=== PATIENT | female | born 1940 | race Caucasian/White ===

== ENCOUNTER 2017-10-09 07:15 | Day surgery (SDC) | payer MEDICARE, BC ==
--- NOTE | ~2017-10-09 | OP ---
PATIENT NAME: JITENDRA BELLA MEDICAL RECORD: [id number] :44 LOCATION:D.OPS ADMISSION DATE: SURGEON: VIRY LUNA MD DATE OF OPERATION: 10/09/2017 PREOPERATIVE DIAGNOSES: 1. Right distal radius fracture. 2. Carpal tunnel syndrome. POSTOPERATIVE DIAGNOSES: 1. Right distal radius fracture. 2. Carpal tunnel syndrome. PROCEDURES: 1. Open reduction and internal fixation of right distal radius fracture. 2. Carpal tunnel release. SURGEON: Viry Luna MD INTRAOPERATIVE COMPLICATIONS: None. SUMMARY OF PATHOLOGIC FINDINGS: As noted in the preoperative setting, the patient had a displaced distal radius fracture, nearly 100% was not amenable to closed reduction. Preoperative images showed that it was completely knocked off and she had impending and rapidly progressing carpal tunnel syndrome. OPERATIVE SUMMARY IN DETAIL: After obtaining the appropriate preoperative orthopedic surgery consent as well as anesthetic consultation, evaluation, and clearance, the patient was brought to the operating room and placed on the operating table in the supine position. After adequate general laryngeal mask airway was administered, tourniquet was placed about the proximal aspect of the right upper extremity. Right upper extremity was then prepped and draped in a routine sterile fashion. Traction and countertraction maneuvers were performed to reduce the wrist. It was held in this reduction. At this point, volar approach of Vinay into the carpal canal and out down the forearm was utilized to do a complete carpal tunnel release under direct visualization the median nerve while gently rinsing away blood and hematoma that was in the transverse carpal canal. FCR was then utilized as landmark and the median nerve was retracted and the fracture was identified. Having completed this, plate was then placed in the appropriate position on fluoroscopy, it was provisionally pinned and then serial and sequential drill and fill technique using combination of both compression and locking screws were utilized to result in an anatomic quaker of the distal radius in both radial angle of inclination and radial height. Having completed this, wound was copiously irrigated and closed with 2-0 Vicryl followed by 4-0 Prolene in a running fashion. Sterile dressings were applied. Tourniquet was deflated. The patient was awakened and taken to the recovery room in stable condition. All final needle and sponge counts were correct. TRANSINT:[id number] Voice Confirmation ID: [id number] DOCUMENT ID: [id number] OPERATIVE REPORT [id number] JITENDRA BELLA MD, VIRY HENDRICKS at 1808 CC: [id number] DICTATION DATE: 10/27/17 1537 MACHINE OPERATOR HAY STACKER: 10/27/17 1630 [facility] 10/09/17 [place] [id number] [place] [id number]
[~2017-10-09 07:15] MED LIST: COZAAR100 MG PO; PROTONIX40 MG PO
[2017-10-09 08:12] LABS: BASOPHILS 0.2 % (0-2); EOSINOPHILS 0.9 % (0-7); HEMATOCRIT 34.4 % (36.0-48.0); HEMOGLOBIN 11.1 g/dL (12-16); IMMATURE GRANULOCYTES 0.3 % (0-5); LYMPHOCYTES 18.3 % (15-50); MCH 38.4 pg (26.0-34.0); MCHC 32.3 g/dL (31.0-37.0); MEAN PLATELET VOLUME 10.6 fL (7.4-10.4); MONOCYTES 6.6 % (2-11); NEUTROPHILS 73.7 % (40-80); PLATELET COUNT 199 10x3/uL (130-400); RBC 2.89 10x6/uL (4.00-5.40); RDW 13.5 % (11.5-14.5); WBC 5.7 10x3/uL (4.8-10.8)
[2017-10-09 08:28] LABS: APTT 27.6 SECONDS (22.8-39.4); INR 0.99 (0.85-1.17); PROTIME 12.7 SECONDS (11.6-15.0)
[2017-10-09 08:31] LABS: ALBUMIN 3.7 g/dL (3.4-5.0); ANION GAP 14.9 mmol/L (8-16); BILIRUBIN - TOTAL 0.27 mg/dL (0.2-1.3); CALCIUM 8.4 mg/dL (8.5-10.1); CARBON DIOXIDE 23.2 mmol/L (21.0-32.0); CREATININE - SERUM 1.2 mg/dL (0.6-1.3); POTASSIUM - SERUM 4.1 mmol/L (3.5-5.1); PROTEIN - SERUM 6.6 g/dL (6.4-8.2)
[2017-10-09 11:34] VITALS: BMI 24.6
[2017-10-09] MEDS ORDERED: HYDROCODONE-APA1 TAB PO (13:16)
== END 2017-10-09 15:35 | disposition home or self-care (01) ==
LOC: D.ER 07:15 → D.OPS 07:15 → EDSTATUS 12:15 → D.OPS 15:35
PROVIDERS: Emergency Medicine
DX: S52.501A Unspecified fracture of the lower end of right radius, initial encounter for closed fracture (principal); G56.01 Carpal tunnel syndrome, right upper limb; Z01.812 Encounter for preprocedural laboratory examination

== ENCOUNTER 2018-02-27 08:23 | Inpatient (IN) | payer MEDICARE, BC ==
[~2018-02-27] VITALS: Ht 160 cm; Wt 63.5 kg
--- NOTE | ~2018-02-27 | OP ---
PATIENT NAME: JITENDRA HARVEY MEDICAL RECORD: [id number] :44 LOCATION:D.MS Lauren9 ADMISSION DATE:02/27/18 SURGEON: ALISON STAUFFER DO DATE OF OPERATION: 02/28/2018 PROCEDURE PERFORMED: Right total hip arthroplasty. PREOPERATIVE DIAGNOSIS: Displaced right femoral neck fracture. POSTOPERATIVE DIAGNOSIS: Displaced right femoral neck fracture. INDICATIONS: Ms. Harvey is a 78-year-old female who was pulled over by her dog and landed onto her right hip yesterday. She sustained a right femoral neck fracture, was taken to the ER. It was displaced. I informed her we could do nothing; do a total hip, do a josemanuel hip, but due to the fact she is active, we came to the agreeance that a total hip would be the best option for her. She is aware of the risks and benefits of the procedure including infection, bleeding, leg length discrepancy, need for further surgery. She was aware of this including damage to the lateral femoral cutaneous nerve and possible need for transfusion. She consented to the procedure. DESCRIPTION OF PROCEDURE: The patient was taken to the operative suite, laid in supine position, given general anesthetic. Right lower extremity was prepped and draped in sterile fashion. Timeout was performed. Everyone was in agreeance with the correct side, site and patient and procedure. Incision began over the tensor fascia jenn. Careful dissection was made down coagulating bleeders with the plasma knife as it went. The fascia of the tensor fascia jenn was then incised. The fascia was taken superiorly, the muscle belly inferiorly and the interval then opened for the rectus femoris was then opened. The vessels of the ascending branch of the lateral femoral circumflex artery were encountered, tied off and then coagulated also with the Aquamantys. I then encountered the hip capsule. Hohmanns were placed on either side of the femoral neck. Capsulotomy was then performed. This capsule was tagged and then the Hohmanns were put on the inside of the capsule. A neck cut was then done. Due to the fact that this was a subcapital femoral neck fracture, I had to recut the neck. This was removed and the head was removed. The acetabulum was exposed. A trial was put into place and the labrum was removed as well as the pulvinar in the acetabulum. We then reamed up to 50, had good anteversion and good angle of the cup, and was put into place. Then, the femur was exposed, broached up to a 14. This was reduced and seemed to be a little too long. This was removed and then a neck cut was done until we cut the neck and then broached back up to 14. The [address] and sized and trialed with a -6 neck with a high offset stem. This was deemed to be adequate length, almost matching the other side. This was all done under fluoroscopy. Once this was done, the wound was thoroughly irrigated. The capsule was closed with #2 Ethibond and then the tensor fascia jenn fascia was closed with 0 Vicryl, first in a [id number] and then oversewn locking running stitch. The skin was then closed with 2-0 Vicryl in an inverted interrupted pattern and 4-0 Monocryl and the skin with Prineo blue on the skin. Telfa and Tegaderm were then placed on the wound. The patient was awakened and taken to recovery. Blood loss was approximately 100 mL. COMPLICATIONS: None. TRANSINT:[id number] Voice Confirmation ID: [id number] DOCUMENT ID: [id number] OPERATIVE REPORT [id number] JITENDRA HARVEY MICHAEL D, DO at 1137 CC: [id number] DICTATION DATE: 02/28/18 1106 FLOOR SCRAPER: 02/28/18 1129 ADM IN [facility] [address] [place] [address]
--- NOTE | ~2018-02-27 | MORECARE ---
CASE MANAGEMENT DISCHARGE SUMMARY PATIENT: JITENDRA BELLA UNIT: [id number] ADM DATE: 02/27/18 AGE: 78 : 42 SEX: F ROOM/BED: D.2203 AUTHOR: JACKLYN, FARM EQUIPMENT SERVICE TECHNICIAN PHYSICIAN: REFERRING PHYSICIAN: MARY GRACE EASLEY DO DATE OF SERVICE: 02/27/18 Discharge Plan Patient Name: JITENDRA BELLA Facility: [facility]:[place] : 1940 Planned Disposition: Anticipated Discharge Date: 03/03/18 Discharge Date: Expected LOS: 4 Initial Reviewer: [email or web address] Initial Review Date: 03/02/2018 Generated: 03/05/18 4:51 pm Comments DCP- Discharge Planning Updated by [id number]: Lissa Ortiz on 03/05/18 2:[address] Patient Name: JITENDRA BELLA Encounter No: [id number] : 1940 Primary Insurance: MEDICARE A & B Anticipated DC Date: 03-03-2018 Planned Disposition: External Planned Provider: : DCP follow-up note: Patient to go to in patient rehab today. IMM served. Case management will follow and assist as needed. Lissa Ortiz DCP- Discharge Planning Updated by [email or web address]: Alexandra Hernandez on 03/02/18 2:[address] Patient Name: JITENDRA BELLA Admission Status: ER Accout number: [id number] Admission Date: 02-27-2018 : 1940 Admission Diagnosis: Attending: MARY GRACE EASLEY Current LOS: 3 Anticipated DC Date: 03-03-2018 Planned Disposition: Primary Insurance: MEDICARE A & B Discharge Planning Comments: CM met with patient about dc planning. Plans to dc to inpatient rehab then to home. States home environment is safe. Lives at home with and daughter (Theresa), is here to help. IMM served. CM will continue to follow and assist as needed with dc planning/needs. Flooring Sales Manager: Alexandra Hernandez DCPIA - Discharge Planning Initial Assessment Updated by [email or web address]: Alexandra Hernandez on 03/02/18 3:20 pm * Is the patient Alert and Oriented? Yes * How many steps to enterexit or inside your home? * PCP Tj * [facility] [address] * Preadmission Environment Home with Family * ADLs Independent * Equipment None * List name and contact numbers for known caregivers / representatives who currently or will assist patient after discharge: Theresa Spicer, daughter, * Verbal permission to speak to the caregivers and representatives has been obtained from the patient. Yes * Community resources currently utilized None * Additional services required to return to the preadmission environment? No * Can the patient safely return to the preadmission environment? Yes * Has this patient been hospitalized within the prior 30 days at any hospital? No Coverage Notice Reviewer: [email or web address] Steven Hernandez Notice Issued Date-Time: 03/02/2018 15:16 Notice Type: IM Discharge Notice Notice Delivered To: Patient Relationship to Patient: Self Recording Studio Intern Name: Delivery Method: HAND - Hand Delivered Esther Days: Prior Verbal Notification: Recipient Understood Notice: Yes Recipient Signature: Yes Med Rec Note Co-signed by Attending: Coverage Notice Comment: Reviewer: [email or web address] Steven Ortiz Notice Issued Date-Time: 03/05/2018 15:45 Notice Type: IM Discharge Notice Notice Delivered To: Patient Relationship to Patient: Recording Studio Intern Name: Delivery Method: HAND - Hand Delivered Esther Days: Prior Verbal Notification: Recipient Understood Notice: Yes Recipient Signature: Yes Med Rec Note Co-signed by Attending: Coverage Notice Comment: Patient Name: JITENDRA BELLA Page [phone] All edits/amendments must be made on the electronic document DICTATION DATE: 03/05/181550 CLIENT INTEGRATION MANAGER: 03/05/18 155 RPT#: [id number] PA DATE: STATUS: ADM IN [facility] [address] [place] [address] END OF REPORT
[~2018-02-27 08:23] MED LIST changes: +HYDROCODONE-APA1 TAB PO
[2018-02-27] MEDS ORDERED: NORVASC2.5 MG PO (08:27)
[2018-02-27] MEDS ORDERED: ZIAC 2.5/6.25 M1 TAB PO (08:27)
[2018-02-27 08:52] LABS: BASOPHILS 0.4 % (0-2); HEMATOCRIT 33.1 % (36.0-48.0); HEMOGLOBIN 10.8 g/dL (12-16); IMMATURE GRANULOCYTES 0.4 % (0-5); LYMPHOCYTES 19.9 % (15-50); MCHC 32.6 g/dL (31.0-37.0); MCV 113.4 fL (80.0-100.0); MEAN PLATELET VOLUME 10.6 fL (7.4-10.4); NEUTROPHILS 72.3 % (40-80); PLATELET COUNT 181 10x3/uL (130-400); RBC 2.92 10x6/uL (4.00-5.40)
[2018-02-27 09:00] LABS: INR 1.07 (0.85-1.17); PROTIME 13.5 SECONDS (11.6-15.0)
[2018-02-27 09:13] LABS: ALBUMIN 3.4 g/dL (3.4-5.0); ANION GAP 11.9 mmol/L (8-16); BILIRUBIN - TOTAL 0.36 mg/dL (0.2-1.3); CARBON DIOXIDE 25.6 mmol/L (21.0-32.0); POTASSIUM - SERUM 3.5 mmol/L (3.5-5.1); PROTEIN - SERUM 6.4 g/dL (6.4-8.2)
[2018-02-27] MEDS ORDERED: TYLENOL W/CODEI1 TAB PO (11:43)
[2018-02-27] MEDS ORDERED: ZEBETA5 MG (11:45)
[2018-02-27] MEDS ORDERED: VITAMIN D250000 UNIT PO (11:46)
[2018-02-27] MEDS ORDERED: VITAMIN B-1000 MCG/M IM (11:47)
[2018-02-27 19:41] VITALS: BMI 24.8
[2018-02-27 20:37] VITALS: BP 127/61
[2018-02-27 23:43] VITALS: BP 141/68
[2018-02-28] VITALS (15 sets, daily range): BP systolic 118–135; BP diastolic 48–72; Ht 160 cm; Wt 63.5 kg
[2018-02-28 05:21] LABS: BASOPHILS 0.3 % (0-2); EOSINOPHILS 3.1 % (0-7); HEMATOCRIT 31.6 % (36.0-48.0); HEMOGLOBIN 10.3 g/dL (12-16); IMMATURE GRANULOCYTES 0.2 % (0-5); LYMPHOCYTES 17.8 % (15-50); MCH 36.9 pg (26.0-34.0); MCHC 32.6 g/dL (31.0-37.0); MCV 113.3 fL (80.0-100.0); MEAN PLATELET VOLUME 11.2 fL (7.4-10.4); MONOCYTES 8.5 % (2-11); NEUTROPHILS 70.1 % (40-80); PLATELET COUNT 165 10x3/uL (130-400); RBC 2.79 10x6/uL (4.00-5.40); WBC 6.1 10x3/uL (4.8-10.8)
[2018-02-28 05:52] LABS: ANION GAP 8.8 mmol/L (8-16); BILIRUBIN - TOTAL 0.62 mg/dL (0.2-1.3); CALCIUM 7.5 mg/dL (8.5-10.1); CARBON DIOXIDE 25.6 mmol/L (21.0-32.0); CREATININE - SERUM 0.8 mg/dL (0.6-1.3); POTASSIUM - SERUM 3.4 mmol/L (3.5-5.1); PROTEIN - SERUM 5.7 g/dL (6.4-8.2)
[2018-03-01 04:30] VITALS: BP 130/70
[2018-03-01 05:33] LABS: BASOPHILS 0.1 % (0-2); EOSINOPHILS 0.3 % (0-7); IMMATURE GRANULOCYTES 0.3 % (0-5); LYMPHOCYTES 9.1 % (15-50); MCH 36.3 pg (26.0-34.0); MCHC 32.9 g/dL (31.0-37.0); MEAN PLATELET VOLUME 11.3 fL (7.4-10.4); MONOCYTES 7.7 % (2-11); NEUTROPHILS 82.5 % (40-80); PLATELET COUNT 132 10x3/uL (130-400); RDW 11.5 % (11.5-14.5); WBC 7.3 10x3/uL (4.8-10.8)
[2018-03-01 05:34] LABS: HEMATOCRIT 24.6 % (36.0-48.0); HEMOGLOBIN 8.1 g/dL (12-16); MCV 110.3 fL (80.0-100.0); RBC 2.23 10x6/uL (4.00-5.40)
[2018-03-01 06:04] LABS: CALC OSMOLALITY 277 mosm/kg (275-300); CALCIUM 7.4 mg/dL (8.5-10.1); CARBON DIOXIDE 25.9 mmol/L (21.0-32.0); CHLORIDE - SERUM 104 mmol/L (98-107); CREATININE - SERUM 0.7 mg/dL (0.6-1.3); GLUCOSE 148 mg/dL (74-106); POTASSIUM - SERUM 3.4 mmol/L (3.5-5.1); SODIUM 138 mmol/L (136-145); UREA NITROGEN 9 mg/dL (7-18); eGFR NON AFRICAN AMERICAN 86 mL/min (90-120)
[2018-03-01 09:10] VITALS: BP 138/73
[2018-03-01 14:32] VITALS: BP 141/68
[2018-03-01 17:00] VITALS: BP 124/76
[2018-03-01 20:54] VITALS: BP 141/73
[2018-03-01 23:45] VITALS: BP 117/61
[2018-03-02] VITALS: BP 133/68
[2018-03-02 05:05] LABS: BASOPHILS 0.1 % (0-2); EOSINOPHILS 2.3 % (0-7); HEMATOCRIT 26.7 % (36.0-48.0); HEMOGLOBIN 8.9 g/dL (12-16); IMMATURE GRANULOCYTES 0.2 % (0-5); LYMPHOCYTES 12.7 % (15-50); MCH 34.8 pg (26.0-34.0); MCHC 33.3 g/dL (31.0-37.0); MEAN PLATELET VOLUME 11.4 fL (7.4-10.4); MONOCYTES 8.1 % (2-11); NEUTROPHILS 76.6 % (40-80); PLATELET COUNT 124 10x3/uL (130-400); RBC 2.56 10x6/uL (4.00-5.40); RDW 18.2 % (11.5-14.5)
[2018-03-02 05:13] LABS: MCV 104.3 fL (80.0-100.0); WBC 9.2 10x3/uL (4.8-10.8)
[2018-03-02 05:35] LABS: ANION GAP 8.8 mmol/L (8-16); CALCIUM 7.9 mg/dL (8.5-10.1); CARBON DIOXIDE 28.4 mmol/L (21.0-32.0); POTASSIUM - SERUM 3.2 mmol/L (3.5-5.1)
[2018-03-02 06:35] VITALS: BP 131/70
[2018-03-02 09:12] VITALS: BP 132/66
[2018-03-02 12:52] VITALS: BP 135/72
[2018-03-02 22:42] VITALS: BP 123/71
[2018-03-03 03:06] VITALS: BP 134/66
[2018-03-03 05:08] LABS: BASOPHILS 0.1 % (0-2); HEMATOCRIT 23.9 % (36.0-48.0); HEMOGLOBIN 8.1 g/dL (12-16); IMMATURE GRANULOCYTES 0.4 % (0-5); LYMPHOCYTES 10.1 % (15-50); MCH 35.1 pg (26.0-34.0); MCHC 33.9 g/dL (31.0-37.0); MCV 103.5 fL (80.0-100.0); MEAN PLATELET VOLUME 11.5 fL (7.4-10.4); MONOCYTES 9.5 % (2-11); NEUTROPHILS 76.9 % (40-80); PLATELET COUNT 141 10x3/uL (130-400); RBC 2.31 10x6/uL (4.00-5.40); RDW 17.9 % (11.5-14.5); WBC 7.7 10x3/uL (4.8-10.8)
[2018-03-03 06:02] LABS: ALBUMIN 2.2 g/dL (3.4-5.0); ANION GAP 8.9 mmol/L (8-16); BILIRUBIN - TOTAL 0.46 mg/dL (0.2-1.3); CALCIUM 7.9 mg/dL (8.5-10.1); CARBON DIOXIDE 27.3 mmol/L (21.0-32.0); CREATININE - SERUM 0.8 mg/dL (0.6-1.3); POTASSIUM - SERUM 3.2 mmol/L (3.5-5.1); PROTEIN - SERUM 5.5 g/dL (6.4-8.2)
[2018-03-03 08:37] VITALS: BP 140/71
[2018-03-03] MEDS ORDERED: ULTRAM50 MG PO (10:26)
[2018-03-03] MEDS ORDERED: ELIQUIS2.5 MG PO (10:26)
[2018-03-03] MEDS ORDERED: KEFLEX500 MG PO (10:27)
[2018-03-03 12:29] VITALS: BP 139/70
[2018-03-03 16:35] VITALS: BP 135/68
[2018-03-03 20:00] VITALS: BP 145/80
[2018-03-04 00:53] VITALS: BP 143/68
[2018-03-04 05:04] VITALS: BP 136/73
[2018-03-04 08:48] VITALS: BP 135/71
[2018-03-04 09:00] LABS: BASOPHILS 0.3 % (0-2); EOSINOPHILS 1.8 % (0-7); HEMATOCRIT 23.4 % (36.0-48.0); IMMATURE GRANULOCYTES 0.5 % (0-5); MCH 35.1 pg (26.0-34.0); MCHC 34.2 g/dL (31.0-37.0); MCV 102.6 fL (80.0-100.0); MEAN PLATELET VOLUME 11.3 fL (7.4-10.4); MONOCYTES 10.1 % (2-11); NEUTROPHILS 75.3 % (40-80); RBC 2.28 10x6/uL (4.00-5.40); RDW 16.5 % (11.5-14.5); WBC 6.1 10x3/uL (4.8-10.8)
[2018-03-04 09:03] LABS: PLATELET COUNT 185 10x3/uL (130-400)
[2018-03-04 15:25] LABS: HEMATOCRIT 26.1 % (36.0-48.0); HEMOGLOBIN 8.7 g/dL (12-16)
[2018-03-04 16:20] VITALS: BP 122/55
[2018-03-04 19:57] VITALS: BP 137/74
[2018-03-04 23:39] VITALS: BP 137/69
[2018-03-05 04:33] LABS: BASOPHILS 0.4 % (0-2); EOSINOPHILS 3.7 % (0-7); HEMATOCRIT 27.9 % (36.0-48.0); HEMOGLOBIN 9.2 g/dL (12-16); IMMATURE GRANULOCYTES 0.7 % (0-5); LYMPHOCYTES 20.1 % (15-50); MONOCYTES 13.4 % (2-11); NEUTROPHILS 61.7 % (40-80); PLATELET COUNT 199 10x3/uL (130-400); WBC 5.4 10x3/uL (4.8-10.8)
[2018-03-05 04:34] LABS: RBC 2.79 10x6/uL (4.00-5.40)
[2018-03-05 04:55] LABS: ALBUMIN 2.2 g/dL (3.4-5.0); ANION GAP 7.8 mmol/L (8-16); BILIRUBIN - TOTAL 0.67 mg/dL (0.2-1.3); CALCIUM 7.9 mg/dL (8.5-10.1); CARBON DIOXIDE 30.3 mmol/L (21.0-32.0); CREATININE - SERUM 0.9 mg/dL (0.6-1.3); POTASSIUM - SERUM 3.1 mmol/L (3.5-5.1); PROTEIN - SERUM 5.7 g/dL (6.4-8.2)
[2018-03-05 06:13] VITALS: BP 146/76
[2018-03-05 12:40] VITALS: BP 136/77
[2018-03-05 16:51] VITALS: BP 137/75
== END 2018-03-05 22:07 | DRG 470 ==
LOC: D.ER 08:23 → D.MS 10:45 → D.EDHOLD 10:45 → D.MS 11:07
PROVIDERS: Family Medicine; Orthopaedic Surgery
PROC: 0SR90JZ Replacement of Right Hip Joint with Synthetic Substitute, Open Approach (ICD-10-PCS; principal; 2018-02-28 08:00)
DX: S72.001A Fracture of unspecified part of neck of right femur, initial encounter for closed fracture (principal); D62 Acute posthemorrhagic anemia; W18.39XA Other fall on same level, initial encounter; Y93.K1 Activity, walking an animal; I10 Essential (primary) hypertension; K21.9 Gastro-esophageal reflux disease without esophagitis; F32.9 Major depressive disorder, single episode, unspecified; S93.401A Sprain of unspecified ligament of right ankle, initial encounter; R42 Dizziness and giddiness; D64.9 Anemia, unspecified; R00.0 Tachycardia, unspecified

== ENCOUNTER 2018-03-05 17:17 | Inpatient (IN) | payer MEDICARE, BC ==
[~2018-03-05] VITALS: Ht 160 cm; Wt 61.7 kg
--- NOTE | ~2018-03-05 | RHP ---
PATIENT: JITENDRA BELLA MEDICAL RECORD: [id number] ACCOUNT: [id number] LOCATION:[facility]1110 : 44 ADMISSION DATE: 03/05/18 REHABILITATION HISTORY AND PHYSICAL EXAMINATION POST ADMISSION PHYSICIAN EXAMINATION DATE OF ADMISSION: 03/05/2018 ADMITTING DIAGNOSIS: Essential hypertension. HISTORY OF PRESENT ILLNESS: The patient is a 78-year-old female patient admitted to inpatient rehab with a right femoral neck fracture after a fall. The patient presented to the ER on 02/27/2018 per EMS after falling while walking her dog. She had immediate pain in her right hip, was unable to straighten her leg. X-ray of her right femur showed the bones are osteopenic. There was a displaced fracture of the right femoral neck and lateral displacement and proximal migration of the distal fracture. 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 She is currently postop day #5 status post right total hip arthroplasty. She did run temperature postop and had anemia requiring transfusion on 03/04/2018. She will require medical management for anemia, pain control, DVT prophylaxis, respiratory status monitoring. She is new-onset on needing O2 and hypertension. Prior to this fall she was completely independent. Currently mod to max assist with rolling walker and ambulating 35 feet with mod assist with ADL. She required intensive therapies in order to return as close to her prior level of function as possible and get home with her . COMORBIDITIES: In this patient include blood loss anemia, right ankle sprain, musculoskeletal pain, fall, nausea, acid reflux, and depression. PAST MEDICAL HISTORY: Significant for acid reflux, depression. PAST SURGICAL HISTORY: Includes gallbladder surgery, hernia surgery and hysterectomy. ALLERGIES: SULFA AND SKELAXIN. CURRENT MEDICATIONS: Include tramadol 50 mg every 4 hours p.r.n., Protonix 40 mg daily, amlodipine 2.5 mg daily, Keflex 500 mg b.i.d. She is on Eliquis 2.5 mg b.i.d. and polyethylene glycol 17 grams in 8 ounces of water daily. HABITS: No current alcohol or tobacco use. FAMILY HISTORY: Noncontributory. SOCIAL HISTORY: The patient hopes to return back home and get back to her prior level of functioning. REVIEW OF SYSTEMS: GENERAL: Does complain of weakness and fatigue. HEENT: Denies cold, cough, or congestion. CARDIOVASCULAR: Denies chest pain. PHYSICAL EXAMINATION: VITAL SIGNS: Stable, afebrile. HISTORY AND PHYSICAL [id number] JITENDRA BELLA GENERAL: An elderly female, in no acute distress, alert upon exam. HEENT: Normocephalic and atraumatic. Mucosa moist. NECK: Supple. No lymphadenopathy. LUNGS: Clear at this time. HEART: Regular rate and rhythm. ABDOMEN: Benign. EXTREMITIES: No clubbing, cyanosis or edema. She does have postop swelling, which appears normal. NEUROLOGIC: She does have some weakness. LABORATORY DATA: Her white count is 6.5, H&H is 9.8 and 29.7 and platelet count is noted to be 253. Her MCV is 100.7. Sodium is 139, potassium 3.2, BUN and creatinine of 10 and 0.8. Blood sugar is noted to be 85. ASSESSMENT: This 78-year-old female patient admitted to the rehab with a working diagnosis of right hip fracture. The patient has potential to make improvement. We instituted the following multidisciplinary therapies include, but not limited to physical, occupational, respiratory, speech, nutritional services, prosthetics and orthotics. Given her complex medical condition and risk for more complications, rehabilitation services cannot be provided at a low level of care such as a senior care facility. PLAN: 1. Admit to [facility] rehab for intensive inpatient therapy to include the following disciplines: A. Physical therapy to improve gait, all transfer skills and bed mobility to a modified independent level. B. Occupational therapy to a modified independent level. C. Case management to assist with discharge planning and placement options. D. Nutrition to assist with nutritional needs. E. Rehabilitation nursing to assist in monitoring the patient's underlying medical conditions and to assist with any type of bowel or bladder management. 2. The patient's current medication and medical care will be continued. 3. The patient will be placed on standard fall precautions. 4. The patient's estimated length of stay is approximately 7 to 10 days. 5. Discuss this patient during care team staff meeting this week. TRANSINT:[id number] Voice Confirmation ID: [id number] DOCUMENT ID: [id number] ARNOLDO notes whether there has been none or any medical/functional change since admission: - NO CHANGE SINCE PRESCREEN. ARNOLDO attests patient continues to be appropriate for IRF: - CONTINUES TO BE APPROPRIATE. HISTORY AND PHYSICAL [id number] JITENDRA BELLA SCOTT MD at 1757 CC: [id number] DICTATION DATE: 03/06/18 08 STAFFING ASSOCIATE: 03/06/18 0902 DIS IN 03/13/18 [place] [id number] [facility] [place] [address]
[~2018-03-05 17:17] MED LIST changes: +ELIQUIS2.5 MG PO; +KEFLEX500 MG PO; +NORVASC2.5 MG PO; +TYLENOL W/CODEI1 TAB PO; +ULTRAM50 MG PO; +VITAMIN B-1000 MCG/M IM; +VITAMIN D250000 UNIT PO; +ZEBETA5 MG; +ZIAC 2.5/6.25 M1 TAB PO
[2018-03-05 22:46] VITALS: BP 158/81; BMI 24.1
[2018-03-06 05:56] LABS: BASOPHILS 0.3 % (0-2); HEMATOCRIT 29.7 % (36.0-48.0); HEMOGLOBIN 9.8 g/dL (12-16); IMMATURE GRANULOCYTES 1.2 % (0-5); MCH 33.2 pg (26.0-34.0); MCV 100.7 fL (80.0-100.0); MEAN PLATELET VOLUME 10.8 fL (7.4-10.4); NEUTROPHILS 65.5 % (40-80); RBC 2.95 10x6/uL (4.00-5.40); RDW 18.9 % (11.5-14.5); WBC 6.5 10x3/uL (4.8-10.8)
[2018-03-06 06:03] LABS: PLATELET COUNT 253 10x3/uL (130-400)
[2018-03-06 06:11] LABS: ANION GAP 10.9 mmol/L (8-16); CALCIUM 8.2 mg/dL (8.5-10.1); CARBON DIOXIDE 28.3 mmol/L (21.0-32.0); CREATININE - SERUM 0.8 mg/dL (0.6-1.3); POTASSIUM - SERUM 3.2 mmol/L (3.5-5.1)
[2018-03-06 08:14] VITALS: BP 154/70
[2018-03-06 09:53] VITALS: Ht 160 cm; Wt 61.7 kg
[2018-03-06 19:00] VITALS: BP 207/79
[2018-03-08 08:00] VITALS: BP 116/65
[2018-03-08 20:00] VITALS: BP 130/74
[2018-03-09 07:30] LABS: EOSINOPHILS 2.9 % (0-7); HEMATOCRIT 28.8 % (36.0-48.0); HEMOGLOBIN 9.3 g/dL (12-16); LYMPHOCYTES 22.6 % (15-50); MCH 33.1 pg (26.0-34.0); MCHC 32.3 g/dL (31.0-37.0); MCV 102.5 fL (80.0-100.0); MEAN PLATELET VOLUME 10.6 fL (7.4-10.4); NEUTROPHILS 60.5 % (40-80); RBC 2.81 10x6/uL (4.00-5.40); RDW 17.8 % (11.5-14.5); WBC 5.9 10x3/uL (4.8-10.8)
[2018-03-09 07:44] LABS: ANION GAP 11.1 mmol/L (8-16); CALCIUM 8.4 mg/dL (8.5-10.1); CARBON DIOXIDE 27.8 mmol/L (21.0-32.0); CREATININE - SERUM 0.8 mg/dL (0.6-1.3); POTASSIUM - SERUM 3.9 mmol/L (3.5-5.1)
[2018-03-09 07:52] LABS: PLATELET COUNT 328 10x3/uL (130-400)
[2018-03-09 08:00] VITALS: BP 137/68
[2018-03-09 19:00] VITALS: BP 122/60
[2018-03-10 08:22] VITALS: BP 109/67
[2018-03-10 19:00] VITALS: BP 109/75
[2018-03-11 07:24] LABS: BASOPHILS 0.7 % (0-2); EOSINOPHILS 2.2 % (0-7); HEMATOCRIT 30.7 % (36.0-48.0); IMMATURE GRANULOCYTES 2.1 % (0-5); LYMPHOCYTES 22.5 % (15-50); MCH 33.3 pg (26.0-34.0); MCHC 32.6 g/dL (31.0-37.0); MCV 102.3 fL (80.0-100.0); MEAN PLATELET VOLUME 10.9 fL (7.4-10.4); NEUTROPHILS 63.5 % (40-80); PLATELET COUNT 374 10x3/uL (130-400); RDW 17.3 % (11.5-14.5); WBC 5.8 10x3/uL (4.8-10.8)
[2018-03-11 07:37] LABS: ANION GAP 11.6 mmol/L (8-16); CALCIUM 8.5 mg/dL (8.5-10.1); CARBON DIOXIDE 27.7 mmol/L (21.0-32.0); CREATININE - SERUM 0.8 mg/dL (0.6-1.3); POTASSIUM - SERUM 4.3 mmol/L (3.5-5.1)
[2018-03-11 08:16] VITALS: BP 119/58
[2018-03-11 19:00] VITALS: BP 120/65
[2018-03-12 08:00] VITALS: BP 103/52
[2018-03-12] MEDS ORDERED: ZOFRAN4 MG PO (15:09)
[2018-03-12] MEDS ORDERED: PROTONIX40 MG PO (15:09)
[2018-03-12] MEDS ORDERED: NORVASC5 MG PO (15:09)
[2018-03-12 19:52] VITALS: BP 115/61
[2018-03-13 06:59] LABS: BASOPHILS 0.7 % (0-2); EOSINOPHILS 2.1 % (0-7); HEMATOCRIT 30.8 % (36.0-48.0); HEMOGLOBIN 10.1 g/dL (12-16); IMMATURE GRANULOCYTES 1.2 % (0-5); LYMPHOCYTES 21.2 % (15-50); MCH 33.6 pg (26.0-34.0); MCHC 32.8 g/dL (31.0-37.0); MCV 102.3 fL (80.0-100.0); MEAN PLATELET VOLUME 10.9 fL (7.4-10.4); MONOCYTES 9.3 % (2-11); NEUTROPHILS 65.5 % (40-80); PLATELET COUNT 358 10x3/uL (130-400); RBC 3.01 10x6/uL (4.00-5.40); WBC 5.8 10x3/uL (4.8-10.8)
[2018-03-13 07:19] LABS: ANION GAP 11.6 mmol/L (8-16); CALCIUM 8.6 mg/dL (8.5-10.1); CARBON DIOXIDE 26.9 mmol/L (21.0-32.0); CREATININE - SERUM 0.8 mg/dL (0.6-1.3); POTASSIUM - SERUM 4.5 mmol/L (3.5-5.1)
[2018-03-13 08:41] VITALS: BP 92/61
== END 2018-03-13 15:08 | disposition home health service (06) | DRG 561 ==
LOC: D.REHAB 17:17
PROVIDERS: Emergency Medicine
DX: S72.001D Fracture of unspecified part of neck of right femur, subsequent encounter for closed fracture with routine healing (principal); Z47.1 Aftercare following joint replacement surgery; Z96.641 Presence of right artificial hip joint; W19.XXXD Unspecified fall, subsequent encounter; K21.9 Gastro-esophageal reflux disease without esophagitis; F32.9 Major depressive disorder, single episode, unspecified; M79.1 Myalgia; S93.401D Sprain of unspecified ligament of right ankle, subsequent encounter; R11.0 Nausea; I10 Essential (primary) hypertension; D50.0 Iron deficiency anemia secondary to blood loss (chronic)

== ENCOUNTER 2018-11-20 06:19 | Day surgery (SDC) | payer MEDICARE, BC ==
[~2018-11-20] VITALS: Ht 160 cm; Wt 61.2 kg
[~2018-11-20 06:19] MED LIST changes: +NORVASC5 MG PO; +ZOFRAN4 MG PO
[2018-11-20 07:18] LABS: HEMATOCRIT 35.8 % (36.0-48.0); HEMOGLOBIN 12.3 g/dL (12-16); MCH 38.7 pg (26.0-34.0); MCHC 34.4 g/dL (31.0-37.0); MCV 112.6 fL (80.0-100.0); MEAN PLATELET VOLUME 11.1 fL (7.4-10.4); RBC 3.18 10x6/uL (4.00-5.40); RDW 12.2 % (11.5-14.5); WBC 3.5 10x3/uL (4.8-10.8)
[2018-11-20 08:26] VITALS: BP 136/55; Ht 160 cm; Wt 61.2 kg
[2018-11-20] MEDS ORDERED: HYDROCODON-ACE1 EAC7 PO (09:48)
[2018-11-20] MEDS ORDERED: DURICEF500 MG PO (09:49)
--- NOTE | 2018-11-20 10:15 | NUR ---
REC'D FROM RR. FAMILY AT BEDSIDE. DRESSING CDI TO LEFT HAND. COFFEE BROUGHT TO PT.
--- NOTE | 2018-11-20 10:45 | NUR ---
FL TRAY BROUGHT TO PATIENT. NO CHANGES NOTED.
--- NOTE | 2018-11-20 11:25 | NUR ---
WRITTEN AND VERBAL DC INST. GIVEN TO PATIENT ALONG WITH RX. VERBALIZED UNDERSTANDING. IV DC' D WITH CATHETER INTACT.
--- NOTE | 2018-11-20 11:45 | NUR ---
DC'D HOME WITH FAMILY VIA PRIVATE VEHICLE. TAKEN TO VEHICLE VIA WC. STABLE AT TIME OF DC.
--- NOTE | 2018-11-23 12:05 | OP ---
PATIENT NAME: JITENDRA HARVEY MEDICAL RECORD: [id number] :44 LOCATION:DBingOPS ADMISSION DATE: SURGEON: NEAL STAUFFER DO DATE OF OPERATION: 11/20/2018 PROCEDURE PERFORMED: Left thumb A1 anabelle release. PREOPERATIVE DIAGNOSIS: Left trigger thumb. POSTOPERATIVE DIAGNOSIS: Left trigger thumb. INDICATIONS: Ms. Harvey is a 78-year-old female who has had trigger thumb on the left hand for quite some time. She tried an injection, which did not work. She wanted it released, was tired of it sticking, clicking and popping, had to unlock it herself. She is aware of the risks of damage to nerves in the area as well as infection, bleeding and need for further surgery and she signed the consent. SURGEON: Neal Stauffer DO DESCRIPTION OF PROCEDURE: The patient was taken to the operative suite, laid in supine position. Left upper extremity was prepped and draped in sterile fashion. Timeout was performed. Everyone was in agreeance with the correct side, site, patient and procedure. The patient was given a gram of Ancef preoperatively. Esmarch was then used to exsanguinate the left upper extremity. The tourniquet was inflated to 250 mmHg, it was up for 5 minutes. The incision then began right over the A1 anaeblle of the thumb with 15-blade scalpel to just breaking the skin and then once the skin was incised, Ragnells were used to bluntly dissect down to the A1 anabelle. It was completely exposed and viewed, and no nerve was seen to go across it. Once the A1 anabelle was released, the tendon glided very easily and was pulled out through the incision site. There was no catching or locking at that time. The tourniquet was then let down at 5 minutes and the site was injected with 0.25% Marcaine with epinephrine, approximately 6 mL. The incision was then closed with 5-0 nylon in a horizontal mattress fashion, 2 stitches. Then, the site was wrapped with Adaptic, 4 x 4s, Kerlix and Coban lightly wrapped on the hand. The patient was awakened and taken to recovery in stable condition. BLOOD LOSS: Minimal. COMPLICATIONS: None. TRANSINT:[id number] Voice Confirmation ID: [id number] DOCUMENT ID: [id number] FAYE DO at 1205 CC: [id number] DICTATION DATE: 11/20/18 0952 IT APPLICATIONS ANALYST: 11/20/18 1151 [facility] 11/20/18 [facility] [address] [place] [address]
== END 2018-11-20 11:45 | disposition home or self-care (01) ==
LOC: D.OPS 06:19 → D.PAN 13:45
PROVIDERS: Anesthesiology; ATTEND Orthopaedic Surgery
DX: M65.312 Trigger thumb, left thumb (principal)

== ENCOUNTER 2018-11-22 18:49 | Inpatient (IN) | payer MEDICARE, BC ==
[~2018-11-22] VITALS: Ht 160 cm; Wt 63.6 kg
[~2018-11-22 18:49] MED LIST changes: +DURICEF500 MG PO; +HYDROCODON-ACE1 EAC7 PO
[2018-11-22 19:15] VITALS: BP 135/80
--- NOTE | 2018-11-22 19:25 | NUR ---
URINE SENT TO THE LAB.
[2018-11-22 19:36] LABS: APPEARANCE CLEAR (CLEAR); BILIRUBIN NEGATIVE (NEGATIVE); COLOR YELLOW (YELLOW); GLUCOSE NEGATIVE (NEGATIVE); KETONE NEGATIVE (NEGATIVE); NITRITE NEGATIVE (NEGATIVE); PROTEIN TRACE mg/dL (NEGATIVE); UROBILINOGEN NORMAL (NORMAL)
[2018-11-22 19:39] LABS: RED CELLS - URINE 0-5 /hpf (0-5); WHITE CELLS - URINE 0-5 /hpf (0-5)
[2018-11-22 19:44] LABS: BACTERIA FEW /hpf (NONE SEEN); EPITHELIAL CELLS 0-5 /hpf (0-5)
[2018-11-22 20:00] VITALS: BP 137/66
[2018-11-22 20:06] LABS: BASOPHILS 0.1 % (0-2); EOSINOPHILS 0.1 % (0-7); HEMATOCRIT 37.3 % (36.0-48.0); HEMOGLOBIN 12.6 g/dL (12-16); IMMATURE GRANULOCYTES 0.3 % (0-5); LYMPHOCYTES 13.5 % (15-50); MCH 38.8 pg (26.0-34.0); MCHC 33.8 g/dL (31.0-37.0); MCV 114.8 fL (80.0-100.0); PLATELET COUNT 194 10x3/uL (130-400); RBC 3.25 10x6/uL (4.00-5.40); RDW 12.4 % (11.5-14.5); WBC 9.3 10x3/uL (4.8-10.8)
[2018-11-22 20:27] LABS: ALBUMIN 3.7 g/dL (3.4-5.0); ALKALINE PHOSPHATASE 62 U/L (46-116); ALT (SGPT) 23 U/L (10-68); BILIRUBIN - TOTAL 0.32 mg/dL (0.2-1.3); CALC OSMOLALITY 276 mosm/kg (275-300); CALCIUM 8.6 mg/dL (8.5-10.1); CARBON DIOXIDE 25.9 mmol/L (21.0-32.0); CHLORIDE - SERUM 102 mmol/L (98-107); CREATININE - SERUM 1.1 mg/dL (0.6-1.3); GLUCOSE 107 mg/dL (74-106); POTASSIUM - SERUM 4.1 mmol/L (3.5-5.1); PROTEIN - SERUM 6.9 g/dL (6.4-8.2); SODIUM 137 mmol/L (136-145); UREA NITROGEN 20 mg/dL (7-18); eGFR NON AFRICAN AMERICAN 51 mL/min (90-120)
[2018-11-22 20:31] LABS: AMYLASE - SERUM 109 U/L (25-115); LIPASE 143 U/L (73-393)
[2018-11-22 20:34] LABS: TROPONIN-I < 0.017 ng/mL (0.000-0.060)
[2018-11-22 21:00] VITALS: BP 154/88
--- NOTE | 2018-11-22 21:57 | NUR ---
THIS NURSE NOTED THAT DOCUMENTATION WAS INCORRECTLY DONE UNDER Miki GARRIDO RN.
--- NOTE | 2018-11-22 22:30 | NUR ---
OCCULT BLOOD POSITIVE.
--- NOTE | 2018-11-22 23:41 | NUR ---
REC'D PATIENT FROM THE ER. PATIENT HAS NO S/S OF DISTRESS, AT BEDSIDE. BROUGHT PATIENT A DRINK PER HER REQUEST. PATIENT DENIES OTHER NEEDS AT THIS TIME. BED IN LOWEST POSITION AND CALL LIGHT WITHIN REACH. ENCOURAGED THE PATIENT TO CALL IF SHE HAS OTHER NEEDS. WILL CONTINUE TO MONITOR.
[2018-11-23] VITALS (7 sets, daily range): BP systolic 96–130; BP diastolic 46–74; Ht 160 cm; Wt 63.6 kg
[2018-11-23 03:29] LABS: HEMATOCRIT 33.6 % (36.0-48.0); HEMOGLOBIN 11.5 g/dL (12-16); LYMPHOCYTES 15.2 % (15-50); MCHC 34.2 g/dL (31.0-37.0); MCV 113.9 fL (80.0-100.0); MEAN PLATELET VOLUME 10.3 fL (7.4-10.4); NEUTROPHILS 75.2 % (40-80); RBC 2.95 10x6/uL (4.00-5.40); RDW 12.5 % (11.5-14.5); WBC 8.9 10x3/uL (4.8-10.8)
[2018-11-23 03:30] LABS: PLATELET COUNT 150 10x3/uL (130-400)
[2018-11-23 03:54] LABS: ALBUMIN 3.1 g/dL (3.4-5.0); ANION GAP 11.4 mmol/L (8-16); BILIRUBIN - TOTAL 0.53 mg/dL (0.2-1.3); CARBON DIOXIDE 25.3 mmol/L (21.0-32.0); POTASSIUM - SERUM 3.7 mmol/L (3.5-5.1); PROTEIN - SERUM 6.2 g/dL (6.4-8.2)
--- NOTE | 2018-11-23 05:00 | NUR ---
PAGED DR. ENCINAS IN REGARDS TO PATIENT'S REQUEST FOR PAIN MEDICATION
--- NOTE | 2018-11-23 08:23 | NUR ---
AWAKE AND ALERT. ORIENTED X3. NO C/O AT THIS TIME EXCEPT ACROSS LOWER ABDOMEN PAIN UNRELIEVED WITH MORPHINE. WILL MONITOR. LUNGS ARE CLEAR BIALTERALLY, NO COUGH NOTED. SKIN IS INTACT WITHOUT REDNESS. SL TO LEFT AC IS PATENT WITHOUT REDNESS AT INSERTION SITE. SITTING UP IN BED EATING CL BREAKFAST. DENIES NEEDS.
--- NOTE | 2018-11-23 09:37 | NUR ---
ATE MOST OF CL BREAKFAST. REPORTS NO BM SINCE ARRIVED TO FLOOR.
--- NOTE | 2018-11-23 12:00 | NUR ---
REQUESTED AND AGIVEN 2MG MORPHINE SLOW IVP FOR C/O ABDOMINAL PAIN LEVEL 10. WILL MONITOR. REFUSED TO WEAR SCD'S AT THIS TIME. SHE IS UP AD ANEUDY.
--- NOTE | 2018-11-23 13:50 | NUR ---
IV TO LEFT AC CONTINUES TO BEEP WITH CONTINUOUS INFUSION. RESITED TO LEFT FOREARM AFTER ONE ATTEMPT WITH 20G. WILL MONITOR.
--- NOTE | 2018-11-23 18:05 | NUR ---
REFUSED TO EAT CL TRAY. REQUESTED AND GIVEN 2MG MORPHINE SLOW IVP FOR C/O ABDOMINAL PAIN LEVEL 10. DENIES NEEDS.
--- NOTE | 2018-11-23 19:49 | NUR ---
PT RECEIVED WITH EYES OPEN WATCHING TV. STATES LIGHT PAIN WITH PRN MEDICATION GIVEN OVER AN HOUR AGO. DISCOMFORT TO LIGHT PALPATION TO UPPER ABDOMEN. FLAGYL STARTED PER OCT. CALL LIGHT IN REACH. WILL CONTINUE TO OBSERVE.
--- NOTE | 2018-11-23 21:45 | NUR ---
WITH EYES OPEN, NO NEEDS MADE KNOWN. WILL CONTINUE TO OBSERVE.
[2018-11-24 00:26] VITALS: BP 103/53
--- NOTE | 2018-11-24 01:28 | NUR ---
HAS RECIEVED MEDICATIONS WITH PRN MORPHINE, NO COMPLAINTS NOTED AT THIS TIME. WILL CONTINUE TO OBSERVE. CALL LIGHT IN REACH.
[2018-11-24 04:38] VITALS: BP 117/51
[2018-11-24 06:07] LABS: BASOPHILS 0.1 % (0-2); EOSINOPHILS 0.6 % (0-7); HEMATOCRIT 33.2 % (36.0-48.0); HEMOGLOBIN 10.8 g/dL (12-16); IMMATURE GRANULOCYTES 0.4 % (0-5); LYMPHOCYTES 11.1 % (15-50); MCH 37.9 pg (26.0-34.0); MCHC 32.5 g/dL (31.0-37.0); MEAN PLATELET VOLUME 11.6 fL (7.4-10.4); MONOCYTES 8.1 % (2-11); NEUTROPHILS 79.7 % (40-80); PLATELET COUNT 172 10x3/uL (130-400); RBC 2.85 10x6/uL (4.00-5.40); RDW 12.5 % (11.5-14.5)
--- NOTE | 2018-11-24 06:41 | NUR ---
PT WITH EYES OPEN, WATCHING TV. RECEIVED MEDICATIONS PER MAR, TOLERATED WELL.
[2018-11-24 06:54] LABS: MCV 116.5 fL (80.0-100.0); WBC 13.8 10x3/uL (4.8-10.8)
[2018-11-24 07:45] LABS: ANION GAP 12.7 mmol/L (8-16); CARBON DIOXIDE 27.1 mmol/L (21.0-32.0); POTASSIUM - SERUM 3.8 mmol/L (3.5-5.1)
[2018-11-24 08:29] VITALS: BP 114/61
[2018-11-24 12:30] VITALS: BP 115/59
[2018-11-24 13:42] LABS: % SATURATION 12 % (15-55); IRON 29 ug/dl (35-150); TOTAL IRON BIND CAPACITY 234 ug/dl (260-445); UNSAT IRON BIND CAPACITY 205 ug/dl (150-375)
[2018-11-24 16:05] VITALS: BP 109/61
--- NOTE | 2018-11-24 18:36 | NUR ---
PT RESTING IN BED, TALKING ON PHONE. NO C/O PAIN. NO S/S OF ACUTE DISTRESS NOTED. CALL LIGHT IN REACH. DENIES ANYTHING FURTHER.
[2018-11-24 22:16] VITALS: BP 120/73
[2018-11-25 04:51] VITALS: BP 118/61
[2018-11-25 05:28] LABS: BASOPHILS 0.1 % (0-2); EOSINOPHILS 0.5 % (0-7); HEMATOCRIT 31.3 % (36.0-48.0); HEMOGLOBIN 10.4 g/dL (12-16); IMMATURE GRANULOCYTES 0.3 % (0-5); LYMPHOCYTES 10.7 % (15-50); MCH 38.1 pg (26.0-34.0); MCHC 33.2 g/dL (31.0-37.0); MCV 114.7 fL (80.0-100.0); MEAN PLATELET VOLUME 11.3 fL (7.4-10.4); MONOCYTES 8.9 % (2-11); NEUTROPHILS 79.5 % (40-80); PLATELET COUNT 164 10x3/uL (130-400); RBC 2.73 10x6/uL (4.00-5.40); RDW 12.3 % (11.5-14.5); WBC 13.8 10x3/uL (4.8-10.8)
[2018-11-25 05:43] LABS: ANION GAP 10.5 mmol/L (8-16); CARBON DIOXIDE 25.9 mmol/L (21.0-32.0); CREATININE - SERUM 0.8 mg/dL (0.6-1.3); POTASSIUM - SERUM 3.4 mmol/L (3.5-5.1)
[2018-11-25 08:30] VITALS: BP 105/54
--- NOTE | 2018-11-25 10:00 | NUR ---
IN ROOM. PATIENT HAS COMPLAINTS OF NAUSEA AT THIS TIME. WILL TRY SPRITE TO HELP WITH THE NAUSEA. WCTM
[2018-11-25 14:08] VITALS: BP 117/63
[2018-11-25 16:44] VITALS: BP 107/64
--- NOTE | 2018-11-25 20:08 | NUR ---
PT IN BED LOW POSITION, EYES OPEN, FLUIDS RUNNING, NO NEEDS NOTED, IV PATENT, FLUIDS AND CALL LIGHT WITHIN REACH
--- NOTE | 2018-11-25 20:46 | NUR ---
PT REQUESTING PAIN MEDICATION HAS PRN 2MG MORPHINE ORDERED, GIVEN THRU IV IN LFA, PAIN 9 OF 10, INTESTINAL AREA, GIVEN, FLUIDS AND CALL LIGHT WITHIN REACH
[2018-11-25 22:53] VITALS: BP 116/53
--- NOTE | 2018-11-26 03:50 | NUR ---
PT AWOKE C/O HEADACHE 5 OF 10 PAIN LEVEL, IV FLUIDS RUNNING, FLUIDS AND CALL LIGHT WITHIN REACH NO OTHER NEEDS NOTED, PT LAYING IN BED LOW POSITION, EYES CLOSED, AROUSES EASILY TO VOICE
[2018-11-26 05:16] LABS: BASOPHILS 0.1 % (0-2); EOSINOPHILS 1.2 % (0-7); HEMATOCRIT 30.5 % (36.0-48.0); HEMOGLOBIN 10.1 g/dL (12-16); IMMATURE GRANULOCYTES 0.3 % (0-5); LYMPHOCYTES 12.4 % (15-50); MCH 37.8 pg (26.0-34.0); MCHC 33.1 g/dL (31.0-37.0); MCV 114.2 fL (80.0-100.0); MEAN PLATELET VOLUME 11.3 fL (7.4-10.4); MONOCYTES 8.6 % (2-11); NEUTROPHILS 77.4 % (40-80); PLATELET COUNT 182 10x3/uL (130-400); RBC 2.67 10x6/uL (4.00-5.40); RDW 12.1 % (11.5-14.5)
[2018-11-26 05:24] VITALS: BP 118/56
[2018-11-26 05:29] LABS: WBC 9.1 10x3/uL (4.8-10.8)
[2018-11-26 05:41] LABS: ANION GAP 11.7 mmol/L (8-16); CALCIUM 8.3 mg/dL (8.5-10.1); CARBON DIOXIDE 25.5 mmol/L (21.0-32.0); CREATININE - SERUM 0.8 mg/dL (0.6-1.3); POTASSIUM - SERUM 3.2 mmol/L (3.5-5.1)
--- NOTE | 2018-11-26 07:21 | NUR ---
PT IS RESTING IN BED WITH EYES CLOSED. RESPIRATIONS ARE EVEN AND UNLABORED. PT IS EASILY AROUSED WITH VERBAL STIMULATION. PT DENIES PRESENCE OF PAIN AT THIS TIME. PT REPORTS FREQUENT PERIODS OF DIARRHEA AND STATES, "I HAVEN'T SEEN ANY BLOOD RECENTLY". BED IS IN THE LOWEST POSITION. CALL LIGHT AND BEDSIDE TABLE ARE WITHIN REACH. SIDE RAILS X 2. WILL CONT TO MONITOR.
[2018-11-26 08:40] VITALS: BP 110/66
--- NOTE | 2018-11-26 11:43 | NUR ---
PIV TO LEFT FOREARM REMOVED WITH CATHETER TIP INTACT. DRESSING APPLIED. PIV REMOVED DUE TO PT C/O BURNING. SLIGHT REDNESS NOTED AND MINIMAL BRUISING NOTED TO IV INSERTION SITE. 20G TO RIGHT WRIST. PT TOLERATED WELL.
[2018-11-26 12:40] VITALS: BP 125/71
--- NOTE | 2018-11-26 15:06 | NUR ---
RIGHT WRIST PIV LEAKING AFTER PT SHOWER. PIV REMOVED WITH CATHETER TIP INTACT. 20G TO LEFT HAND X 1 ATTEMPT. PT TOLERATED WELL.
[2018-11-26 16:09] LABS: OVA + PARASITE EXAM Final report (())
[2018-11-26 17:34] VITALS: BP 109/66
--- NOTE | 2018-11-26 18:53 | MORECARE ---
CASE MANAGEMENT DISCHARGE SUMMARY PATIENT: JITENDRA BELLA CINTHYA UNIT: [id number] ADM DATE: 11/23/18 AGE: 78 : 42 SEX: F ROOM/BED: D.2201 AUTHOR: HUMZADOC PHYSICIAN: REFERRING PHYSICIAN: RUTHIE ENCINAS MD DATE OF SERVICE: 11/26/18 Discharge Plan Patient Name: JITENDRA BELLA Facility: [facility]:[place] : 1940 Planned Disposition: Home Anticipated Discharge Date: 11/29/18 Discharge Date: Expected LOS: 6 Initial Reviewer: [id number] Initial Review Date: 11/26/2018 Generated: 11/26/18 7:53 pm DCPIA - Discharge Planning Initial Assessment Updated by [email or web address]: Alla Lopez on 11/26/18 6:52 pm * Is the patient Alert and Oriented? Yes * How many steps to enter\exit or inside your home? * PCP DR. EASLEY * Pharmacy [facility] [address] * Preadmission Environment Home with Family * ADLs Independent * Equipment Cane Walker * Other Equipment BUILT IN SHOWER CHAIR * List name and contact numbers for known caregivers / representatives who currently or will assist patient after discharge: KARLI BELLA (SPOUSE) [phone] * Verbal permission to speak to the caregivers and representatives has been obtained from the patient. Yes * Community resources currently utilized None * Additional services required to return to the preadmission environment? Yes * Can the patient safely return to the preadmission environment? Yes * Has this patient been hospitalized within the prior 30 days at any hospital? No Coverage Notice Reviewer: [id number] Steven Lopez Notice Issued Date-Time: 11/26/2018 18:48 Notice Type: Patient Choice Letter Notice Delivered To: Patient Relationship to Patient: Shotblaster Name: Delivery Method: HAND - Hand Delivered Esther Days: Prior Verbal Notification: Recipient Understood Notice: Yes Recipient Signature: Yes Med Rec Note Co-signed by Attending: Coverage Notice Comment: REFUSED HOME HEALTH, FORM SIGNED Reviewer: [id number] Steven Lopez Notice Issued Date-Time: 11/26/2018 18:48 Notice Type: IM Discharge Notice Notice Delivered To: Patient Relationship to Patient: Shotblaster Name: Delivery Method: HAND - Hand Delivered Esther Days: Prior Verbal Notification: Recipient Understood Notice: Yes Recipient Signature: Yes Med Rec Note Co-signed by Attending: Coverage Notice Comment: Patient Name: JITENDRA BELLA Page 44893 at 1853 All edits/amendments must be made on the electronic document DICTATION DATE: 11/26/181852 LAND INSPECTOR: DORCAS 11/26/181852 RPT#: [id number] DC DATE: STATUS: ADM IN [facility] [address] [place] [address] END OF REPORT
--- NOTE | 2018-11-26 19:00 | MORECARE ---
CASE MANAGEMENT DISCHARGE SUMMARY PATIENT: JITENDRA BELLAU UNIT: [id number] ADM DATE: 11/23/18 AGE: 78 : 42 SEX: F ROOM/BED: D.2201 AUTHOR: SIENA CHING PHYSICIAN: REFERRING PHYSICIAN: RUTHIE ENCINAS MD DATE OF SERVICE: 11/26/18 Discharge Plan Patient Name: JITENDRA BELLA Facility: [facility]:[place] : 1940 Planned Disposition: Home Anticipated Discharge Date: 11/29/18 Discharge Date: Expected LOS: 6 Initial Reviewer: [id number] Initial Review Date: 11/26/2018 Generated: 11/26/18 8:00 pm Comments DCP- Discharge Planning Updated by [id number]: Alla Lopez on 11/26/18 5:[address] Patient Name: JITENDRA BELLA Admission Status: ER Accout number: [id number] Admission Date: 11-23-2018 : 1940 Admission Diagnosis: Attending: RUTHIE ENCINAS Current LOS: 3 Anticipated DC Date: 11-29-2018 Planned Disposition: Home Primary Insurance: MEDICARE A & B Discharge Planning Comments: CM MET WITH PATIENT REGARDING D/C NEEDS AND PLANS. PATIENT STATED SHE LIVES WITH HER SPOUSE (KARLI) AND HE WILL DRIVE HER HOME AT DISCHARGE. PATIENT STATED SHE HAS NO STEPS TO ENTER HOME OR INSIDE. PATIENT STATED SHE IS INDEPENDENT WITH HER CARE AND HAS A CANE, WALKER, AND BUILT IN SHOWER CHAIR AT HOME. PATIENTS PCP IS DR. EASLEY AND USES [facility] [address] FOR HER PHARMACY. PATIENT REFUSED HOME HEALTH AT THIS TIME AND A CHOICE FORM WAS SIGNED. ALSO, AN IMM FORM WAS SERVED. CM WILL CONTINUE TO FOLLOW PATIENT WITH D/C NEEDS AND PLANS. PCP DR[facility] KARLI (SPOUSE) [phone] Baster Hand: Alla Lopez DCPIA - Discharge Planning Initial Assessment Updated by [email or web address]: Alla Lopez on 11/26/18 6:52 pm * Is the patient Alert and Oriented? Yes * How many steps to enter\exit or inside your home? * PCP DR. EASLEY * Pharmacy [facility] [address] * Preadmission Environment Home with Family * ADLs Independent * Equipment Cane Walker * Other Equipment BUILT IN SHOWER CHAIR * List name and contact numbers for known caregivers / representatives who currently or will assist patient after discharge: KARLI BELLA (SPOUSE) [phone] * Verbal permission to speak to the caregivers and representatives has been obtained from the patient. Yes * Community resources currently utilized None * Additional services required to return to the preadmission environment? Yes * Can the patient safely return to the preadmission environment? Yes * Has this patient been hospitalized within the prior 30 days at any hospital? No Coverage Notice Reviewer: [id number] Steven Lopez Notice Issued Date-Time: 11/26/2018 18:48 Notice Type: Patient Choice Letter Notice Delivered To: Patient Relationship to Patient: Feather Stitcher Name: Delivery Method: HAND - Hand Delivered Esther Days: Prior Verbal Notification: Recipient Understood Notice: Yes Recipient Signature: Yes Med Rec Note Co-signed by Attending: Coverage Notice Comment: REFUSED HOME HEALTH, FORM SIGNED Reviewer: [id number] Steven Lopez Notice Issued Date-Time: 11/26/2018 18:48 Notice Type: IM Discharge Notice Notice Delivered To: Patient Relationship to Patient: Feather Stitcher Name: Delivery Method: HAND - Hand Delivered Esther Days: Prior Verbal Notification: Recipient Understood Notice: Yes Recipient Signature: Yes Med Rec Note Co-signed by Attending: Coverage Notice Comment: Last DP export: 11/26/18 5:53 p Patient Name: JITENDRA BELLA Page [id number] at 1900 All edits/amendments must be made on the electronic document DICTATION DATE: 11/26/181899 AMERICAN STUDIES PROFESSOR: DORCAS 11/26/181899 RPT#: [id number] DC DATE: STATUS: ADM IN [facility] [address] [place] [address] END OF REPORT
[2018-11-26 20:49] VITALS: BP 119/73
[2018-11-27 00:09] VITALS: BP 125/71
[2018-11-27 04:21] LABS: BASOPHILS 0.1 % (0-2); EOSINOPHILS 3.2 % (0-7); HEMATOCRIT 30.3 % (36.0-48.0); IMMATURE GRANULOCYTES 0.8 % (0-5); LYMPHOCYTES 16.7 % (15-50); MCH 37.2 pg (26.0-34.0); MCV 112.6 fL (80.0-100.0); MEAN PLATELET VOLUME 11.2 fL (7.4-10.4); MONOCYTES 10.9 % (2-11); NEUTROPHILS 68.3 % (40-80); PLATELET COUNT 209 10x3/uL (130-400); RBC 2.69 10x6/uL (4.00-5.40); RDW 11.9 % (11.5-14.5); WBC 7.7 10x3/uL (4.8-10.8)
[2018-11-27 04:27] LABS: ANION GAP 12.5 mmol/L (8-16); CALCIUM 8.2 mg/dL (8.5-10.1); CARBON DIOXIDE 23.8 mmol/L (21.0-32.0); CREATININE - SERUM 0.8 mg/dL (0.6-1.3); POTASSIUM - SERUM 3.3 mmol/L (3.5-5.1)
[2018-11-27 04:59] VITALS: BP 118/65
[2018-11-27 09:18] VITALS: BP 115/67
[2018-11-27 13:28] VITALS: BP 113/61
--- NOTE | 2018-11-27 15:35 | NUR ---
I have reviewed this patient and I concur with the Shift Assessment completed by the Licensed Practical Nurse today this shift.
[2018-11-27 21:20] VITALS: BP 115/70
[2018-11-28 00:53] VITALS: BP 110/72
[2018-11-28 05:43] LABS: BASOPHILS 0.3 % (0-2); EOSINOPHILS 2.8 % (0-7); HEMATOCRIT 31.1 % (36.0-48.0); HEMOGLOBIN 10.4 g/dL (12-16); IMMATURE GRANULOCYTES 1.2 % (0-5); LYMPHOCYTES 19.8 % (15-50); MCH 37.8 pg (26.0-34.0); MCHC 33.4 g/dL (31.0-37.0); MCV 113.1 fL (80.0-100.0); MEAN PLATELET VOLUME 11.2 fL (7.4-10.4); MONOCYTES 13.7 % (2-11); NEUTROPHILS 62.2 % (40-80); PLATELET COUNT 215 10x3/uL (130-400); RBC 2.75 10x6/uL (4.00-5.40); RDW 12.1 % (11.5-14.5); WBC 6.7 10x3/uL (4.8-10.8)
[2018-11-28 05:53] LABS: ANION GAP 14.2 mmol/L (8-16); CALCIUM 8.4 mg/dL (8.5-10.1); CARBON DIOXIDE 24.3 mmol/L (21.0-32.0); CREATININE - SERUM 0.8 mg/dL (0.6-1.3); POTASSIUM - SERUM 3.5 mmol/L (3.5-5.1)
[2018-11-28 06:01] VITALS: BP 112/66
[2018-11-28 09:08] VITALS: BP 114/66
[2018-11-28] MEDS ORDERED: FLAGYL500 MG PO (09:45)
[2018-11-28] MEDS ORDERED: LEVOFLOXACIN500 MG PO (09:45)
[2018-11-28] MEDS ORDERED: MIRALAX17 GM PO (09:45)
--- NOTE | 2018-11-28 13:52 | MORECARE ---
CASE MANAGEMENT DISCHARGE SUMMARY PATIENT: JITENDRA BELLAU UNIT: [id number] ADM DATE: 11/23/18 AGE: 78 : 42 SEX: F ROOM/BED: D.2201 AUTHOR: SEINA CHING PHYSICIAN: REFERRING PHYSICIAN: RUTHIE ENCINAS MD DATE OF SERVICE: 11/28/18 Discharge Plan Patient Name: JITENDRA BELLA Facility: [facility]:[place] : 1940 Planned Disposition: Home Anticipated Discharge Date: 11/29/18 Discharge Date: 11/28/2018 Expected LOS: 6 Initial Reviewer: [email or web address] Initial Review Date: 11/26/2018 Generated: 11/28/18 2:52 pm Comments DCP- Discharge Planning Updated by [id number]: Alla Lopez on 11/26/18 5:[address] Patient Name: JITENDRA BELLA Admission Status: ER Accout number: [id number] Admission Date: 11-23-2018 : 1940 Admission Diagnosis: Attending: RUTHIE ENCINAS Current LOS: 3 Anticipated DC Date: 11-29-2018 Planned Disposition: Home Primary Insurance: MEDICARE A & B Discharge Planning Comments: CM MET WITH PATIENT REGARDING D/C NEEDS AND PLANS. PATIENT STATED SHE LIVES WITH HER SPOUSE (KARLI) AND HE WILL DRIVE HER HOME AT DISCHARGE. PATIENT STATED SHE HAS NO STEPS TO ENTER HOME OR INSIDE. PATIENT STATED SHE IS INDEPENDENT WITH HER CARE AND HAS A CANE, WALKER, AND BUILT IN SHOWER CHAIR AT HOME. PATIENTS PCP IS DR. EASLEY AND USES [facility] [address] FOR HER [facility]Y. PATIENT REFUSED HOME HEALTH AT THIS TIME AND A CHOICE FORM WAS SIGNED. ALSO, AN IMM FORM WAS SERVED. CM WILL CONTINUE TO FOLLOW PATIENT WITH D/C NEEDS AND PLANS. PCP [facility] KARLI (SPOUSE) [phone] Awnings Mechanic: Alla Lopez DCPIA - Discharge Planning Initial Assessment Updated by [id number]: Alla Lopez on 11/26/18 6:52 pm * Is the patient Alert and Oriented? Yes * How many steps to enter\exit or inside your home? * PCP DR. EASLEY * Pharmacy [facility] [address] * Preadmission Environment Home with Family * ADLs Independent * Equipment Cane Walker * Other Equipment BUILT IN SHOWER CHAIR * List name and contact numbers for known caregivers / representatives who currently or will assist patient after discharge: KARLI BELLA (SPOUSE) [phone] * Verbal permission to speak to the caregivers and representatives has been obtained from the patient. Yes * Community resources currently utilized None * Additional services required to return to the preadmission environment? Yes * Can the patient safely return to the preadmission environment? Yes * Has this patient been hospitalized within the prior 30 days at any hospital? No Coverage Notice Reviewer: [id number] Steven Lopez Notice Issued Date-Time: 11/26/2018 18:48 Notice Type: Patient Choice Letter Notice Delivered To: Patient Relationship to Patient: Blow Torch Burner Name: Delivery Method: HAND - Hand Delivered Esther Days: Prior Verbal Notification: Recipient Understood Notice: Yes Recipient Signature: Yes Med Rec Note Co-signed by Attending: Coverage Notice Comment: REFUSED HOME HEALTH, FORM SIGNED Reviewer: [id number] Steven Lopez Notice Issued Date-Time: 11/26/2018 18:48 Notice Type: IM Discharge Notice Notice Delivered To: Patient Relationship to Patient: Blow Torch Burner Name: Delivery Method: HAND - Hand Delivered Esther Days: Prior Verbal Notification: Recipient Understood Notice: Yes Recipient Signature: Yes Med Rec Note Co-signed by Attending: Coverage Notice Comment: Last DP export: 11/26/18 6:00 p Patient Name: JITENDRA BELLA Page 15736 at 1352 All edits/amendments must be made on the electronic document DICTATION DATE: 11/28/18 1352 REAL ESTATE ACCOUNTANT: DORCAS 11/28/18 1352 RPT#: [id number] DC DATE:11/28/18 STATUS: DIS IN [facility] [address] [place] [address] END OF REPORT
--- NOTE | 2018-11-28 13:59 | MORECARE ---
CASE MANAGEMENT DISCHARGE SUMMARY PATIENT: JITENDRA BELLAU UNIT: [id number] ADM DATE: 11/23/18 AGE: 78 : 42 SEX: F ROOM/BED: D.2201 AUTHOR: SIENA CHING PHYSICIAN: REFERRING PHYSICIAN: RUTHIE ENCINAS MD DATE OF SERVICE: 11/28/18 Discharge Plan Patient Name: JITENDRA BELLA Facility: [facility]:[place] : 1940 Planned Disposition: Home Anticipated Discharge Date: 11/29/18 Discharge Date: 11/28/2018 Expected LOS: 6 Initial Reviewer: [id number] Initial Review Date: 11/26/2018 Generated: 11/28/18 2:59 pm Comments DCP- Discharge Planning Updated by [id number]: Bee Schafer on 11/28/18 12:[address] LATE ENTRY 1030 CM VISITED THE BEDSIDE. PATIENT IS READY FOR DISCHARGE. SHE HAS DISCONNECTED HER TELEMETRY UNIT. CM ADVISED SHE IS DISCHARGED. HER IS AT THE BEDSIDE. SHE AND HER DECLINE HOME HEALTH. THE STATES HE IS A RN MEDICAL INPATIENT SERVICES FOR [employer] [facility]. CM ADVISED PRIMARY NURSE THAT THE PATIENT HAS DECLINED HOME HEALTH SERVICES AGAIN. GAVE THE TELEMETRY UNIT TO THE NURSE. DCP- Discharge Planning Updated by [id number]: Alla Lopez on 11/26/18 5:[address] Patient Name: JITENDRA BELLA Admission Status: ER Accout number: [id number] Admission Date: 11-23-2018 : 1940 Admission Diagnosis: Attending: RUTHIE ENCINAS Current LOS: 3 Anticipated DC Date: 11-29-2018 Planned Disposition: Home Primary Insurance: MEDICARE A & B Discharge Planning Comments: CM MET WITH PATIENT REGARDING D/C NEEDS AND PLANS. PATIENT STATED SHE LIVES WITH HER SPOUSE (KARLI) AND HE WILL DRIVE HER HOME AT DISCHARGE. PATIENT STATED SHE HAS NO STEPS TO ENTER HOME OR INSIDE. PATIENT STATED SHE IS INDEPENDENT WITH HER CARE AND HAS A CANE, WALKER, AND BUILT IN SHOWER CHAIR AT HOME. PATIENTS PCP IS DR. EASLEY AND USES [facility] FOR HER PHARMACY. PATIENT REFUSED HOME HEALTH AT THIS TIME AND A CHOICE FORM WAS SIGNED. ALSO, AN IMM FORM WAS SERVED. CM WILL CONTINUE TO FOLLOW PATIENT WITH D/C NEEDS AND PLANS. PCP [facility] KARLI (SPOUSE) [phone] Resident Care Associate: Alla Lopez MOPIA - Discharge Planning Initial Assessment Updated by [id number]: Alla Lopez on 11/26/18 6:52 pm * Is the patient Alert and Oriented? Yes * How many steps to enter\exit or inside your home? * PCP DR. EASLEY * Pharmacy [facility] [address] * Preadmission Environment Home with Family * ADLs Independent * Equipment Cane Walker * Other Equipment BUILT IN SHOWER CHAIR * List name and contact numbers for known caregivers / representatives who currently or will assist patient after discharge: KARLI BELLA (SPOUSE) [phone] * Verbal permission to speak to the caregivers and representatives has been obtained from the patient. Yes * Community resources currently utilized None * Additional services required to return to the preadmission environment? Yes * Can the patient safely return to the preadmission environment? Yes * Has this patient been hospitalized within the prior 30 days at any hospital? No Coverage Notice Reviewer: [id number] Steven Lopez Notice Issued Date-Time: 11/26/2018 18:48 Notice Type: Patient Choice Letter Notice Delivered To: Patient Relationship to Patient: Assistant Boiler Operator Name: Delivery Method: HAND - Hand Delivered Esther Days: Prior Verbal Notification: Recipient Understood Notice: Yes Recipient Signature: Yes Med Rec Note Co-signed by Attending: Coverage Notice Comment: REFUSED HOME HEALTH, FORM SIGNED Reviewer: [id number] Steven Lopez Notice Issued Date-Time: 11/26/2018 18:48 Notice Type: IM Discharge Notice Notice Delivered To: Patient Relationship to Patient: Assistant Boiler Operator Name: Delivery Method: HAND - Hand Delivered Esther Days: Prior Verbal Notification: Recipient Understood Notice: Yes Recipient Signature: Yes Med Rec Note Co-signed by Attending: Coverage Notice Comment: Last DP export: 11/28/18 12:52 p Patient Name: JITENDRA BELLA Page 44758 at 1359 All edits/amendments must be made on the electronic document DICTATION DATE: 11/28/18 4986 SALES ATTENDANT: DORCAS 11/28/18 1350 RPT#: [id number] MO DATE:11/28/18 STATUS: DIS IN [facility] [address] [place] [address] END OF REPORT
--- NOTE | 2018-11-30 11:37 | MORECARE ---
CASE MANAGEMENT DISCHARGE SUMMARY PATIENT: JITENDRA BELLAU UNIT: [id number] ADM DATE: 11/23/18 AGE: 78 : 42 SEX: F ROOM/BED: D.2201 AUTHOR: SIENA CHING PHYSICIAN: REFERRING PHYSICIAN: RUTHIE ENCINAS MD DATE OF SERVICE: 11/30/18 Discharge Plan Patient Name: JITENDRA BELLA Facility: [facility]:[place] : 1940 Planned Disposition: Home Anticipated Discharge Date: 11/29/18 Discharge Date: 11/28/2018 Expected LOS: 6 Initial Reviewer: [id number] Initial Review Date: 11/26/2018 Generated: 11/30/18 12:37 pm Comments DCP- Discharge Planning Updated by [id number]: Bee Schafer on 11/28/18 12:[address] LATE ENTRY 1030 CM VISITED THE BEDSIDE. PATIENT IS READY FOR DISCHARGE. SHE HAS DISCONNECTED HER TELEMETRY UNIT. CM ADVISED SHE IS DISCHARGED. HER IS AT THE BEDSIDE. SHE AND HER DECLINE HOME HEALTH. THE STATES HE IS A PRODUCT TECHNOLOGY SCIENTIST FOR [employer]. CM ADVISED PRIMARY NURSE THAT THE PATIENT HAS DECLINED HOME HEALTH SERVICES AGAIN. GAVE THE TELEMETRY UNIT TO THE NURSE. DCP- Discharge Planning Updated by [email or web address]: Alla Lopez on 11/26/18 5:[address] Patient Name: JITENDRA BELLA Admission Status: ER Accout number: [id number] Admission Date: 11-23-2018 : 1940 Admission Diagnosis: Attending: RUTHIE ENCINAS Current LOS: 3 Anticipated DC Date: 11-29-2018 Planned Disposition: Home Primary Insurance: MEDICARE A & B Discharge Planning Comments: CM MET WITH PATIENT REGARDING D/C NEEDS AND PLANS. PATIENT STATED SHE LIVES WITH HER SPOUSE (KARLI) AND HE WILL DRIVE HER HOME AT DISCHARGE. PATIENT STATED SHE HAS NO STEPS TO ENTER HOME OR INSIDE. PATIENT STATED SHE IS INDEPENDENT WITH HER CARE AND HAS A CANE, WALKER, AND BUILT IN SHOWER CHAIR AT HOME. PATIENTS PCP IS DR. EASLEY AND USES [facility] FOR HER PHARMACY. PATIENT REFUSED HOME HEALTH AT THIS TIME AND A CHOICE FORM WAS SIGNED. ALSO, AN IMM FORM WAS SERVED. CM WILL CONTINUE TO FOLLOW PATIENT WITH D/C NEEDS AND PLANS. PCP [facility] KARLI (SPOUSE) [phone] Compliance Paralegal: Alla Lopez HIPIA - Discharge Planning Initial Assessment Updated by [email or web address]: Alla Lopez on 11/26/18 6:52 pm * Is the patient Alert and Oriented? Yes * How many steps to enter\exit or inside your home? * PCP DR. EASLEY * Pharmacy [facility] [address] * Preadmission Environment Home with Family * ADLs Independent * Equipment Cane Walker * Other Equipment BUILT IN SHOWER CHAIR * List name and contact numbers for known caregivers / representatives who currently or will assist patient after discharge: KARLI BELLA (SPOUSE) [phone] * Verbal permission to speak to the caregivers and representatives has been obtained from the patient. Yes * Community resources currently utilized None * Additional services required to return to the preadmission environment? Yes * Can the patient safely return to the preadmission environment? Yes * Has this patient been hospitalized within the prior 30 days at any hospital? No Coverage Notice Reviewer: [id number] Steven Lopez Notice Issued Date-Time: 11/26/2018 18:48 Notice Type: Patient Choice Letter Notice Delivered To: Patient Relationship to Patient: Fixing Machine Operator Name: Delivery Method: HAND - Hand Delivered Esther Days: Prior Verbal Notification: Recipient Understood Notice: Yes Recipient Signature: Yes Med Rec Note Co-signed by Attending: Coverage Notice Comment: REFUSED HOME HEALTH, FORM SIGNED Reviewer: [id number] Steven Lopez Notice Issued Date-Time: 11/26/2018 18:48 Notice Type: IM Discharge Notice Notice Delivered To: Patient Relationship to Patient: Fixing Machine Operator Name: Delivery Method: HAND - Hand Delivered Esther Days: Prior Verbal Notification: Recipient Understood Notice: Yes Recipient Signature: Yes Med Rec Note Co-signed by Attending: Coverage Notice Comment: Last DP export: 11/28/18 12:59 p Patient Name: JITENDRA BELLA Page 83636 at 1137 All edits/amendments must be made on the electronic document DICTATION DATE: 11/30/18 1136 WORM FARMER: DORCAS 11/30/18 1136 RPT#: [id number] HI DATE:11/28/18 STATUS: DIS IN [facility] [address] [facility] [place] [address] END OF REPORT
== END 2018-11-28 12:38 | disposition home or self-care (01) | DRG 391 ==
LOC: D.ER 18:49 → D.MS 22:58 → OBSVTIME 22:58 → D.MS 11-23 16:15
PROVIDERS: Family Medicine; Internal Medicine Nephrology; ADMIT Family Medicine; ATTEND Family Medicine
DX: K52.9 Noninfective gastroenteritis and colitis, unspecified (principal); K57.33 Diverticulitis of large intestine without perforation or abscess with bleeding; K92.1 Melena; K57.92 Diverticulitis of intestine, part unspecified, without perforation or abscess without bleeding; I10 Essential (primary) hypertension; E53.8 Deficiency of other specified B group vitamins; E87.6 Hypokalemia; E61.1 Iron deficiency; D75.89 Other specified diseases of blood and blood-forming organs

== ENCOUNTER → 2018-12-31 08:58 | Outpatient (CLI) | payer MEDICARE, BC | END | disposition home or self-care (01) | LOC: D.CT 08:58 | DX: J98.4 Other disorders of lung (principal) ==

== ENCOUNTER 2019-02-05 08:30 | Day surgery (SDC) | payer MEDICARE, BC ==
[2019-02-02 09:08] LABS: HEMATOCRIT 38.8 % (36.0-48.0); HEMOGLOBIN 13.5 g/dL (12-16); MCH 36.2 pg (26.0-34.0); MCHC 34.8 g/dL (31.0-37.0); MEAN PLATELET VOLUME 11.5 fL (7.4-10.4); RBC 3.73 10x6/uL (4.00-5.40); RDW 11.6 % (11.5-14.5); WBC 5.1 10x3/uL (4.8-10.8)
--- NOTE | 2019-02-02 09:48 | NUR ---
ALEJO NOTE: CRITICAL LAB POTASSIUM 2.[address] STAUFFER'S OFFICE.
[~2019-02-05] VITALS: Ht 160 cm; Wt 61.2 kg
[~2019-02-05 08:30] MED LIST changes: +CYANOCOBAL1000 MCG/4 SC; +FLAGYL500 MG PO; +LEVOFLOXACIN500 MG PO; +MIRALAX17 GM PO; -VITAMIN B-1000 MCG/M IM
[2019-02-05] MEDS ORDERED: KLOR-CON M2020 MEQ PO (09:21)
[2019-02-05 09:22] VITALS: BP 115/59; Ht 160 cm; Wt 61.2 kg
[2019-02-05] MEDS ORDERED: DURICEF500 MG PO (15:00)
[2019-02-05] MEDS ORDERED: HYDROCODON-ACE1 EAC2 PO (15:00)
--- NOTE | 2019-02-09 09:22 | OP ---
PATIENT NAME: JITENDRA HARVEY MEDICAL RECORD: [id number] :[birth year] LOCATION:[facility] ADMISSION DATE: SURGEON: NEAL STAUFFER DO DATE OF OPERATION: 02/05/2019 PROCEDURES PERFORMED: Right distal radius removal of hardware and right middle finger A1 anabelle release. PREOPERATIVE DIAGNOSES: Painful hardware right distal radius and trigger finger of right middle finger. POSTOPERATIVE DIAGNOSES: Painful hardware right distal radius and trigger finger of right middle finger. INDICATIONS: Ms. Harvey is a 79-year-old female, who has had right trigger finger for some time. She broke her distal radius in October of 2017. The plate had been giving her some problems she thought and had some pain in her wrist, and we tried an injection in her trigger finger, which did not work, it kept catching and locking. She was tired of dealing with that and wanted something done about it and said while we were there we just take the plate out as well to kill 2 birds with one stone. She was okay with that and is aware of the risks of infection, bleeding, damage to nerves and vessels, need for further surgery, and she has signed the consent. SURGEON: Neal Stauffer DO DESCRIPTION OF PROCEDURE: The patient received a gram of Ancef preoperatively. She was given a block by anesthesia in the preoperative area and was taken to the operative suite, given TIVA. The right upper extremity was then prepped and draped in sterile fashion. A time-out was performed and everyone was agreement with the correct side, site, patient, and procedure. The right upper extremity was then exsanguinated with an Esmarch and tourniquet was inflated to 250 mmHg, it was up for 44 minutes. The trigger finger was addressed first. An incision was made across the distal crease of the palm and careful dissection was made down to the A1 anabelle. It was released under direct visualization and the flexor tendon was pulled out through the incision indicating that it was released and finger was ranged also and it did not catch. The distal radius was then addressed. An incision was made along the previous incision. Careful dissection was made down to the flexor carpi radialis and then down to the plate itself. The plate was cleaned off and then the screwdriver we needed was not encountered in the set we had and we had to open up a separate pack. Once the proper screwdriver was found, the screws were removed and the plate was removed, and the tourniquet was deflated at 44 minutes. Any bleeding was coagulated with the bipolar. The distal radius incision was closed with 3-0 Vicryl in inverted interrupted fashion and 5-0 Monocryl ran on the skin. Then trigger finger was closed with 5-0 Monocryl in inverted interrupted fashion. Adaptic, 4 x 4s, ABD, Webril and Jace wrap were then placed over the patient and up to the wrist. She was awakened and taken back to her room due to the fact she was on TIVA and in stable condition. Blood loss was minimal. Complications none. TRANSINT:[id number] Voice Confirmation ID: [id number] DOCUMENT ID: [id number] OPERATIVE REPORT [id number] JITENDRA HARVEY MICHAEL D, DO at 0922 CC: [id number] DICTATION DATE: 02/05/19 1458 MELTER SUPERVISOR ELECTRIC ARC FURNACE: 02/05/19 2215 [facility] 02/05/19 [address] [place] [address]
== END 2019-02-05 17:02 | disposition home or self-care (01) ==
LOC: D.OPS 08:30 → D.PAN 13:00 → D.OPS 13:00
PROVIDERS: Anesthesiology; ATTEND Orthopaedic Surgery
DX: T84.84XA Pain due to internal orthopedic prosthetic devices, implants and grafts, initial encounter (principal); Y83.9 Surgical procedure, unspecified as the cause of abnormal reaction of the patient, or of later complication, without mention of misadventure at the time of the procedure; M65.331 Trigger finger, right middle finger

== ENCOUNTER → 2020-04-27 09:42 | Outpatient (CLI) | payer MEDICARE, BC ==
[2019-02-05 09:22] VITALS: BMI 23.9
[~2020-04-27 09:42] MED LIST changes: +HYDROCODON-ACE1 EAC2 PO; +KLOR-CON M2020 MEQ PO; +PEPCID40 MG PO
== END | disposition home or self-care (01) ==
LOC: D.HCCARDIO 09:42
PROVIDERS: ATTEND Internal Medicine Cardiovascular Disease
DX: I20.9 Angina pectoris, unspecified (principal)

== ENCOUNTER 2020-05-01 12:12 | Emergency (ER) | payer MEDICARE, BC ==
[~2020-05-01] VITALS: Ht 160 cm; Wt 65.5 kg
[~2020-05-01 12:12] MED LIST changes: -PEPCID40 MG PO
[2020-05-01 12:34] VITALS: BP 140/80; Ht 160 cm; Wt 65.5 kg
[2020-05-01 13:11] LABS: BASOPHILS 0.7 % (0-2); EOSINOPHILS 2.5 % (0-7); HEMATOCRIT 39.4 % (36.0-48.0); HEMOGLOBIN 12.8 g/dL (12-16); IMMATURE GRANULOCYTES 0.2 % (0-5); LYMPHOCYTES 26.6 % (15-50); MCH 35.7 pg (26.0-34.0); MCHC 32.5 g/dL (31.0-37.0); MCV 109.7 fL (80.0-100.0); MEAN PLATELET VOLUME 11.2 fL (7.4-10.4); MONOCYTES 8.2 % (2-11); NEUTROPHILS 61.8 % (40-80); RBC 3.59 10x6/uL (4.00-5.40); RDW 13.1 % (11.5-14.5)
[2020-05-01 13:23] LABS: CALC OSMOLALITY 280 mosm/kg (275-300); CALCIUM 8.9 mg/dL (8.5-10.1); CARBON DIOXIDE 29.5 mmol/L (21.0-32.0); CHLORIDE - SERUM 103 mmol/L (98-107); CREATININE - SERUM 1.1 mg/dL (0.6-1.3); GLUCOSE 92 mg/dL (74-106); POTASSIUM - SERUM 3.4 mmol/L (3.5-5.1); SODIUM 139 mmol/L (136-145); UREA NITROGEN 22 mg/dL (7-18); eGFR NON AFRICAN AMERICAN 51 mL/min (90-120)
[2020-05-01 13:27] LABS: PLATELET COUNT 109 10x3/uL (130-400)
[2020-05-01 13:39] LABS: ALKALINE PHOSPHATASE 158 U/L (30-120); ALT (SGPT) 155 U/L (10-68); BILIRUBIN - TOTAL 0.75 mg/dL (0.2-1.3); CKMB 1.6 U/L (0.0-3.6); CREATINE KINASE 88 UL (21-215); MAGNESIUM - SERUM 2.2 mg/dL (1.8-2.4); PROTEIN - SERUM 7.4 g/dL (6.4-8.2)
[2020-05-01 13:40] LABS: TROPONIN-I < 0.017 ng/mL (0.000-0.060)
[2020-05-01 13:44] LABS: APTT 25.1 SECONDS (22.8-39.4)
[2020-05-01 13:48] LABS: INR 0.99 (0.85-1.17); PROTIME 13.1 SECONDS (11.6-15.0)
[2020-05-01 15:47] LABS: AMYLASE - SERUM 104 U/L (25-115); LIPASE 84 U/L (73-393); PRO BNP 130 pg/mL (0-450)
[2020-05-01] MEDS ORDERED: PEPCID40 MG PO (17:04)
== END 2020-05-01 17:25 | disposition home or self-care (01) ==
LOC: D.ER 12:12
PROVIDERS: Emergency Medicine
DX: K21.9 Gastro-esophageal reflux disease without esophagitis (principal); R07.89 Other chest pain; R74.0 Nonspecific elevation of levels of transaminase and lactic acid dehydrogenase [LDH]; D69.6 Thrombocytopenia, unspecified; I10 Essential (primary) hypertension

== ENCOUNTER 2020-10-31 14:30 | Outpatient (CLI) | payer MEDICARE, BC ==
[2020-06-09 08:46] VITALS: BMI 25.7
[~2020-10-31 14:30] MED LIST changes: +PEPCID40 MG PO; +TYLENOL #4 W/CO1 TAB PO
== END 2020-10-31 23:59 | disposition home or self-care (01) ==
LOC: D.MAMMO 14:30
PROVIDERS: ATTEND Family Medicine
DX: R92.8 Other abnormal and inconclusive findings on diagnostic imaging of breast (principal)